=== PATIENT | female | born 1985 | race Caucasian/White ===

== ENCOUNTER → 2016-10-31 | Outpatient (CLI) | payer BC ==
--- NOTE | 2016-10-31 17:04 | US ---
EXAMINATION TYPE: US transvaginal DATE OF EXAM: 10/31/2016 4:45 PM COMPARISON: on PACS CLINICAL HISTORY: N93.9 Abn uterine/vag bleeding,E28.2 Polycyst Ovar. Abnormal menses, hx of ovarian cysts. Generalized cramping. Hx of TECHNIQUE: Transvaginal (TV) Date of LMP: 10/17/2016, EXAM MEASUREMENTS: Uterus: 9.6 x 5.6 x 4.7 cm Endometrial Stripe: 0.5 cm Right Ovary: 4.2 x 1.8 x 2.2 cm Left Ovary: 4.2 x 1.9 x 2.3 cm 1. Uterus: Anteverted wnl 2. Endometrium: wnl 3. Right Ovary: wnl 4. Left Ovary: Multiple follicles seen. Cystic lesion = 2.5 x 3.4 x 3.1 cm Spectral, color and waveform doppler imaging shows good arterial and venous flow within the ovaries ; there is no evidence for ovarian torsion. 5. Bilateral Adnexa: Cystic lesion seen in right adnexa adjacent to right ovary = 5.6 x 4.5 x 3.9 cm with two posterior echogenic lesions with shadowin- 0.4 x 0.5 x 0.3 cm 2- 0.4 x 0.4 x 0.3 cm 6. 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
== END | disposition home or self-care (01) ==
LOC: RADUSWWP 14:56
PROVIDERS: ATTEND Family Medicine
DX: N83.201 Unspecified ovarian cyst, right side (principal)
CPT/HCPCS: 76830

== ENCOUNTER → 2016-11-14 | Outpatient (CLI) | payer BC | LOC: LABWHC1 14:01 | PROVIDERS: ATTEND Family Medicine | DX: N83.201 Unspecified ovarian cyst, right side (principal) | CPT/HCPCS: 36415; 81503 ==

== ENCOUNTER 2019-09-19 15:17 | Inpatient (IN) | payer OTHER, BC ==
[2019-09-19] MEDS ORDERED: MORPHINE SULFATE 4 MG/ML SYRINGE IV STA (15:47)
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
[2019-09-19] MEDS ORDERED: HYDROmorphone 0.5 MG/0.5 ML SYRINGE IVP STA ×2 (16:43→17:24)
--- NOTE | 2019-09-19 17:01 | XR ---
EXAMINATION TYPE: XR hand limited bilateral DATE OF EXAM: 09/19/2019 COMPARISON: None HISTORY: Trauma. Bilateral pain. TECHNIQUE: 3 views each hand FINDINGS: There is impacted transverse fractures of the distal left side radial metaphysis. There is some comminution of the epiphyseal fragments. Metacarpals are intact. Carpal bones are intact. There is no dislocation. There is nondisplaced chip fracture left side ulnar styloid process. IMPRESSION: Acute nondisplaced impacted comminuted transverse fractures of the left side distal radia l metaphysis. Nondisplaced chip fracture left-sided ulnar styloid process.
--- NOTE | 2019-09-19 17:02 | XR ---
EXAMINATION TYPE: XR chest 1V DATE OF EXAM: 09/19/2019 COMPARISON: 09/04/2012 HISTORY: Palpitations TECHNIQUE: 2 views FINDINGS: Heart and mediastinum are normal. Lungs are clear. Diaphragm is normal. Bony thorax is inta ct. IMPRESSION: Normal chest. No change.
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
--- NOTE | 2019-09-19 18:46 | XR ---
EXAMINATION TYPE: XR wrist complete LT DATE OF EXAM: 09/19/2019 COMPARISON: Today HISTORY: Fracture TECHNIQUE: 4 views FINDINGS: There is impacted transverse fracture distal radial metaphysis. Fracture line extends to th e radiocarpal joint. There is nondisplaced ulnar styloid process small chip fracture. The carpal bone s are intact. Scaphoid bone appears normal. Intercarpal joint spaces are normal. Metacarpals are inta ct. IMPRESSION: Acute impacted comminuted intra-articular fracture of the distal radius. No dislocation.
[2019-09-19] MEDS ORDERED: NALOXONE 0.4 MG/ML 1 ML VIAL IV PRN (19:07)
[2019-09-19] MEDS ORDERED: MORPHINE SULFATE 4 MG/ML SYRINGE IV PRN ×2 (19:07→22:18)
[2019-09-19] MEDS: SODIUM CHLORIDE 0.9% 1,000 ML IV SCH (21:03)
[2019-09-19] MEDS: hydrOXYzine PAMOATE 25 MG CAP PO PRN (22:24)
[2019-09-19] MEDS: MORPHINE SULFATE 2 MG/ML SYRINGE IVP PRN (23:22)
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
[2019-09-20] MEDS: MORPHINE SULFATE 2 MG/ML SYRINGE IVP PRN ×6 (01:34→22:24)
[2019-09-20] MEDS: SODIUM CHLORIDE 0.9% 1,000 ML IV SCH ×2 (06:29→17:50)
[2019-09-20 06:45] LABS: Basophils % (A) 0 %; Eosinophils # (A) 0.2 k/uL (0-0.7); Eosinophils % (A) 2 %; HCT 35.1 % (34.0-46.0); Hypochromasia Slight; Lymphocytes # (A) 1.8 k/uL (1.0-4.8); Lymphocytes % (A) 19 %; MCH 27.3 pg (25.0-35.0); MCHC 31.2 g/dL (31.0-37.0); MCV 87.4 fL (80.0-100.0); Mean Platelet Volume 7.3; Monocytes # (A) 0.3 k/uL (0-1.0); Monocytes % (A) 3 %; Neutrophils # (A) 7.2 k/uL (1.3-7.7); Neutrophils % (A) 74 %; Platelet Count 297 k/uL (150-450); RBC 4.01 m/uL (3.80-5.40); RDW 14.9 % (11.5-15.5); WBC 9.7 k/uL (3.8-10.6)
[2019-09-20 06:48] LABS: Prothrombin Time 10.6 sec (9.0-12.0)
[2019-09-20 06:58] LABS: African American GFR (CKD) >90 (>60 ml/min/1.73 sqM); Anion Gap 9 mmol/L; Blood Urea Nitrogen 14 mg/dL (7-17); Calcium 8.7 mg/dL (8.4-10.2); Carbon Dioxide 21 mmol/L (22-30); Chloride 109 mmol/L (98-107); Glucose 137 mg/dL (74-99); Non-African American GFR(CKD) >90 (>60 ml/min/1.73 sqM); Potassium 4.4 mmol/L (3.5-5.1); Sodium 139 mmol/L (137-145)
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
[2019-09-20] MEDS: hydrOXYzine PAMOATE 25 MG CAP PO PRN (07:22)
[2019-09-20 07:58] LABS: Appearance,Urine Clear (Clear); Bilirubin,Urine Negative (Negative); Blood,Urine Negative (Negative); Color,Urine Yellow; Glucose,Urine (UA) Negative (Negative); Ketones,Urine Negative (Negative); Leukocyte Esterase,Urine Negative (Negative); Nitrite,Urine Negative (Negative); PH, Urine 5.5 (5.0-8.0); Protein,Urine Trace (Negative); Specific Gravity,Urine 1.025 (1.001-1.035); Urobilinogen,Urine <2.0 mg/dL (<2.0)
[2019-09-20] MEDS ORDERED: hydrALAZINE HCL 20 MG/ML 1 ML VIAL IVP PRN (11:37)
[2019-09-20] MEDS ORDERED: LACTATED RINGERS 1,000 ML IV ONE ×2 (12:00→14:15)
[2019-09-20] MEDS ORDERED: ONDANSETRON 4 MG/2 ML VIAL IVP ONE (12:01)
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
[2019-09-20] MEDS ORDERED: LIDOCAINE 1% INJ 10MG/ML (20 ML MDV) ONE (13:12)
[2019-09-20] MEDS ORDERED: HYDROmorphone (PF) 1 MG/ML ONE (13:12)
[2019-09-20] MEDS ORDERED: fentaNYL (PF) 50 MCG/ML 2 ML AMP ONE (13:12)
[2019-09-20] MEDS ORDERED: GLYCOPYRROLATE 0.2 MG/ML 2 ML VIAL ONE (13:12)
[2019-09-20] MEDS ORDERED: SUCCINYLCHOLINE CHLORIDE 100 MG/5 ML SYR IV ONE (13:12)
[2019-09-20] MEDS ORDERED: PROPOFOL 10 MG/ML 20 ML VIAL IV ONE (13:12)
[2019-09-20] MEDS ORDERED: ceFAZolin 1,000 MG VIAL ONE (13:12)
[2019-09-20] MEDS ORDERED: ROCURONIUM BROMIDE 10 MG/ML 10 ML VIAL IV ONE (13:12)
[2019-09-20] MEDS ORDERED: NEOSTIGMINE 1 MG/ML 10 ML VIAL ONE (13:12)
[2019-09-20] MEDS ORDERED: MIDAZOLAM 2 MG/2 ML VIAL ONE (13:12)
[2019-09-20] MEDS ORDERED: SODIUM CHLORIDE 0.9% 50 ML with ceFAZolin 2,000 MG IV ONE ×2 (13:40)
[2019-09-20] MEDS ORDERED: HYDROcodone/APAP 7.5-325MG 1 EACH TAB PO PRN ×2 (15:11)
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
[2019-09-20] MEDS: HYDROmorphone 1 MG/ML 1 ML SYRINGE IVP ONE ×2 (15:38→16:10)
--- NOTE | 2019-09-20 15:48 | FL ---
Fluoroscopy HISTORY: Fracture 6 seconds fluoroscopy time supplied to the referring clinician. 2 intraoperative C-arm images docume nt the procedure. See dictated report from orthopedic surgery.
--- NOTE | 2019-09-20 15:49 | FL ---
Fluoroscopy HISTORY: Pain, open reduction internal fixation right radius 7 seconds fluoroscopy time supplied to the referring clinician. 3 intraoperative C-arm images docume nt the procedure. See dictated report from orthopedic surgery.
[2019-09-20] MEDS: amLODIPine 5 MG TAB PO SCH (17:49)
[2019-09-20] MEDS: FLUoxetine HCL 20 MG CAP PO SCH (17:50)
[2019-09-20] MEDS: buPROPion XL 150 MG TAB.ER.24H PO SCH (17:50)
[2019-09-20] MEDS: traMADol 50 MG TAB PO SCH ×2 (18:49→23:27)
[2019-09-20] MEDS: HEPARIN SODIUM,PORCINE 5,000 UNIT/ML 1 ML VIAL SQ SCH (21:42)
[2019-09-20] MEDS: ACETAMINOPHEN TAB 325 MG TAB PO PRN (22:23)
[2019-09-21] MEDS: MORPHINE SULFATE 2 MG/ML SYRINGE IVP PRN ×3 (00:53→06:56)
[2019-09-21] MEDS: hydrOXYzine PAMOATE 25 MG CAP PO PRN ×2 (00:54→04:59)
[2019-09-21] MEDS: SODIUM CHLORIDE 0.9% 1,000 ML IV SCH ×2 (04:55→13:48)
[2019-09-21] MEDS: ACETAMINOPHEN TAB 325 MG TAB PO PRN (07:19)
[2019-09-21] MEDS ORDERED: PANTOPRAZOLE 40 MG TABLET PO SCH (07:30)
[2019-09-21] MEDS: HEPARIN SODIUM,PORCINE 5,000 UNIT/ML 1 ML VIAL SQ SCH (09:14)
[2019-09-21] MEDS: FLUoxetine HCL 20 MG CAP PO SCH (09:14)
[2019-09-21] MEDS: amLODIPine 5 MG TAB PO SCH (09:14)
[2019-09-21] MEDS: traMADol 50 MG TAB PO SCH ×2 (09:14→13:41)
[2019-09-21] MEDS: buPROPion XL 150 MG TAB.ER.24H PO SCH (09:15)
--- NOTE | 2019-09-21 11:49 | P.PN ---
Subjective Progress Note Date: 09/21/19 Principal diagnosis: status post ORIF right radial shaft fracture, closed reduction with casting left distal radius fracture Patient evaluated at bedside today, she is resting comfortably. Her is present at bedside. Her pain is controlled at this time with regards to both arms. She has no fevers, chills, chest pain or shortness of breath. Objective - Vital Signs Vital signs: Vital Signs Temp 98.3 F 09/21/19 06:55 Pulse 100 09/21/19 06:55 Resp 17 09/21/19 06:55 BP 144/87 09/21/19 06:55 Pulse Ox 95 09/21/19 06:55 Intake & Output 09/20/19 09/21/19 09/21/19 18:59 06:59 18:59 Intake Total 1650 Output Total 10 Balance 1640 Weight 83.915 kg Intake: IV 1650 Output: Estimated Blood Loss 10 Other: Voiding Method Toilet # Voids 1 - Exam Right upper extremity: Sugar tong splint is in good position and condition, she is able to wiggle the fingers with no difficulty. Minimal swelling noted in the fingers. Sensation to light touch proximal distal to the splinter intact. Left upper extremity: Fiberglass cast is in good position and condition. She is able to wiggle the fingers and no difficulty. No significant swelling present in the fingers. Sensation to light touch both proximal distal to this cast are intact. - Labs CBC & Chem 7: 09/20/19 06:28 09/20/19 06:28 Assessment and Plan Plan: Assessment: 1. Postop day #1 status post ORIF right radial shaft fracture, closed reduction with cast left distal radius fracture Plan: Pain control, patient is transitioned oral medication at this time, IV pain medication on board for breakthrough. Cast instructions were discussed Icing and elevating techniques discuss Activity restrictions discussed Medical recommendations Hopeful discharge home today Time with Patient: Less than 30
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
[2019-09-21 15:28] VITALS: BP 125/78; PULSE 99; RESP 16; TEMP 98.6
--- NOTE | 2019-09-21 16:13 | PN ---
PROGRESS NOTE DATE OF SERVICE: 09/21/2019 This is a 34-year-old woman who was admitted with acute right displaced distal radius shaft fracture and left mildly displaced intraarticular distal radius fracture. She underwent ORIF by Dr. Saravia. The patient is complaining of severe pain. No chest pain. No palpitations. No fever. PHYSICAL EXAMINATION: Alert and oriented. Pulse 100, blood pressure 140/87, respirations 16, temperature 98.2, pulse ox 98% on room air. HEENT: Conjunctivae normal. NECK: No jugular venous distention. CARDIOVASCULAR: S1, S2 muffled. RESPIRATORY: Breath sounds diminished at the bases. Scattered rhonchi and crackles. ABDOMEN: Soft, nontender. LEGS: No edema. NERVOUS SYSTEM: No focal deficits. HANDS: Status post surgery. LABS: WBC 9.7, hemoglobin is 11. Glucose 137. ASSESSMENT: 1. Acute right displaced distal radial shaft fracture and left mildly displaced intraarticular distal radius fracture, status post ORIF. 2. Hypertension. 3. Elevated random blood glucose. 4. Anemia, normocytic. RECOMMENDATIONS AND DISCUSSION: I recommend to continue current medications, continue symptomatic treatment. Recommend follow with incentive spirometry. DVT prophylaxis. Followup with primary physician after discharge. Repeat labs. Closely monitor. Rest of recommendations per Orthopedic Surgery. Thank you, Dr. Saravia, for letting us participate in the care of this patient. MMODL / IJN: [id number] /
== END 2019-09-21 16:31 | disposition home or self-care (01) | DRG 511 ==
LOC: EC 15:17 → 4SSUR 17:52
PROVIDERS: ADMIT Orthopaedic Surgery; ATTEND Orthopaedic Surgery
PROC: 0PSJXZZ Reposition Left Radius, External Approach (ICD-10-PCS; principal; 2019-09-20 09:40)
PROC: 0PSH04Z Reposition Right Radius with Internal Fixation Device, Open Approach (ICD-10-PCS; principal; 2019-09-20 09:40)
DX: S52.572A Other intraarticular fracture of lower end of left radius, initial encounter for closed fracture (principal); S52.301A Unspecified fracture of shaft of right radius, initial encounter for closed fracture; E66.3 Overweight; D64.9 Anemia, unspecified; F32.9 Major depressive disorder, single episode, unspecified; F41.9 Anxiety disorder, unspecified; I10 Essential (primary) hypertension; V43.52XA Car driver injured in collision with other type car in traffic accident, initial encounter; Y92.410 Unspecified street and highway as the place of occurrence of the external cause; Z79.899 Other long term (current) drug therapy
CPT/HCPCS: 29125; 71045; 80048; 81003; 81025; 85025; 85610; 93005; 96374; 96375; 96376; 99285

== ENCOUNTER 2025-03-11 17:43 | Outpatient (CLI) | payer BC, OTHER ==
[2025-03-11] MEDS: LACTATED RINGERS 1,000 ML IV ONE ×3 (18:58→20:58)
[2025-03-11] MEDS: ONDANSETRON 4 MG/2 ML VIAL IM STA (19:31)
[2025-03-11 19:33] LABS: Bilirubin,Urine Negative (Negative); Blood,Urine Negative (Negative); Color,Urine Yellow; Glucose,Urine (UA) Negative (Negative); Ketones,Urine 2+ (Negative); Leukocyte Esterase,Urine Negative (Negative); Nitrite,Urine Negative (Negative); PH, Urine 5.5 (5.0-8.0); Protein,Urine Trace (Negative); Specific Gravity,Urine 1.026 (1.001-1.035); Urobilinogen,Urine <2.0 mg/dL (<2.0)
[2025-03-11 22:05] VITALS: BP 128/79; PULSE 73; RESP 16; TEMP 97.8
--- NOTE | 2025-03-12 09:43 | P.MSEPDOC ---
Presenting Problems - Arrival Data Date of Arrival on Unit: 03/11/25 Time of Arrival on Unit: 19:40 Mode of Transport: Ambulatory - Complaint OB-Reason for Admission/Chief Complaint: Acute Nausea/Vomiting, Pain Comment: left lower abdominal pain to left flank pain 8/10 and nausea Medical History - Information : 3 Para: 2 Term: 2 Abortions: Spontaneous or Elective: 0 Number of Living Children: 2 - Gestational Age Gestational Age by ALISHA (wks/days): 31 Weeks and 5 Days - History Comment: none Review of Systems - Review of Systems Constitutional: No problems Breast: No problems ENT: No problems Cardiovascular: No problems Respiratory: No problems Gastrointestinal: Pain Genitourinary: No problems Musculoskeletal: No problems Neurological: No problems Skin: No problems Vital Signs - Temperature Temperature: 97.8 F Temperature Source: Oral - Pulse Pulse Oximetery Pulse Rate: 73 Pulse Assessment Method: Pulse Oximetry - Respirations Respiratory Rate: 16 Oxygen Delivery Method: Room Air O2 Sat by Pulse Oximetry: 100 - Blood Pressure Right Arm Blood Pressure: 128/79 Blood Pressure Mean: 95 Blood Pressure Source: Automatic Cuff Medical Screen Scoring - Cervical Exam Effacement (%): 50 Station: -2 - Uterine Contractions Frequency From (mins): 2 Frequency To (mins): 3 Duration From (seconds): 30 Duration To (seconds): 100 Intensity: Mild Resting: Soft to palpation - Assessment - Baby A Baseline FHR: 120 Heart Rate - NICHD Category: Category I (Normal) NST: Reactive Physician Notification - Physician Notified Physician Notified Date: 03/11/25 Physician Notified Time: 19:44 Physician: Garrett Barrera New Order Received: Yes - Notification Comment Comment: RN spoke with Dr. Barrera and he is aware of patients OB hx, cat 1 heart tones, pain that is 8/10 with contractions andcontractions pattern, BP and cervical checks x2. Dr. Barrera ordered an IV bolus of LR on patient. Maternal Triage Index - Urgent/Priority 2 Urgent Priority 2: Yes Provider Notified: Garrett Barrera Provider Notified Time: 19:44 Criteria Met for Priority 2: RN spoke with Dr. Barrera and he is aware of patients OB hx, cat 1 heart tones, pain that is 8/10 with contractions andcontractions pattern, BP and cervical checks x2. Dr. Barrera ordered an IV bolus of LR on patient. Disposition - Disposition OB Disposition: Discharge to home Discharge Date: 03/11/25 Discharge Time: 19:44 I agree with the RN Medical Screening Exam: Yes Case reviewed; plan agreed upon as documented in EMR&OBIX.: Yes Diagnosis: RELATED CONDITIONS, UNSPECIFIED, THIRD TRIMESTER
== END 2025-03-11 21:55 | disposition home or self-care (01) ==
LOC: FBPOP 17:43
PROVIDERS: ATTEND Obstetrics & Gynecology
DX: O26.893 Other specified pregnancy related conditions, third trimester (principal); Z88.8 Allergy status to other drugs, medicaments and biological substances; Z3A.31 31 weeks gestation of pregnancy
CPT/HCPCS: 59025; 99214; 96361; 96375; 36415; 81003; J2405